=== PATIENT | male | born 1945 | race Caucasian/White ===

== ENCOUNTER 2016-08-07 03:36 | Inpatient (IN) ==
[2016-08-01 11:15] LABS: HEMATOCRIT 35.9 % (42.0-52.0); HEMOGLOBIN 11.7 g/dL (14.0-18.0); MCH 28.7 PG (27-31); MCHC 32.6 g/dL (33-37); MPV 9.8 FL (7.4-10.4); RBC 4.08 XMIL (4.7-6.1)
[2016-08-01 11:24] LABS: INR 1.09; PROTIME 11.5 Seconds (9.2-11.7); PTT 30.6 Seconds (22.0-36.0)
[2016-08-01 11:31] LABS: AGAP 9; BUN 12 mg/dL (8-22); CALCIUM 8.8 mg/dL (8.8-10.2); CHLORIDE 105 mmol/L (98-107); COSMO 279; POTASSIUM 4.8 mmol/L (3.5-5.1); SODIUM 140 mmol/L (136-145); TCO2 26 mmol/L (25-35)
[2016-08-07] MEDS ORDERED: LR 1,000 ML ONE ×2 (05:32→06:11)
[2016-08-07] MEDS ORDERED: PEPCID ONE (05:32)
[2016-08-07] MEDS ORDERED: LEVAQUIN 500 MG/D5W 100 ML ONE (05:32)
[2016-08-07 08:00] LABS: URINE MICRO REVIEW NEEDED? NO; URINE SOURCE CATH
[2016-08-07 08:03] LABS: BILIRUBIN URINE NEGATIVE (NEGATIVE); BLOOD URINE NEGATIVE (NEGATIVE); COLOR STRAW; GLUCOSE URINE NEGATIVE (NEGATIVE); LEUKOCYTES URINE NEGATIVE (NEGATIVE); NITRITE URINE NEGATIVE (NEGATIVE); PH URINE 7.5; PROTEIN URINE NEGATIVE (NEGATIVE); SP GRAVITY URINE 1.005; TURBIDITY URINE CLEAR (CLEAR); UROBILINOGEN URINE NORMAL (NORMAL)
[2016-08-07 08:04] LABS: UR EPITHELIAL CELLS <10 /HPF (<10); URINE BACTERIA NEGATIVE /HPF; URINE RBC <10 /HPF (<10); URINE WBC <10 /HPF (<10)
[2016-08-07] MEDS ORDERED: DILAUDID ONE (10:18)
[2016-08-07] MEDS ORDERED: FENTANYL ONE (10:18)
[2016-08-07] MEDS ORDERED: DIPRIVAN 1% ONE (10:19)
[2016-08-07] MEDS ORDERED: NEOSTIGMINE ONE (10:24)
[2016-08-07] MEDS ORDERED: LR 2,000 ML ONE (10:25)
[2016-08-07] MEDS ORDERED: APRESOLINE ONE (10:25)
[2016-08-07] MEDS ORDERED: ZEMURON ONE (10:25)
[2016-08-07] MEDS ORDERED: ZOFRAN ONE (10:25)
[2016-08-07] MEDS ORDERED: VENTOLIN HFA ONE (10:25)
[2016-08-07] MEDS ORDERED: XYLOCAINE-MPF 2% ONE (10:25)
[2016-08-07] MEDS ORDERED: OFIRMEV 1000 MG/ISOTONIC SOLN 100 ML ONE (10:25)
[2016-08-07] MEDS ORDERED: ROBINUL ONE (10:25)
[2016-08-07] MEDS ORDERED: DECADRON ONE (10:25)
[2016-08-07] MEDS ORDERED: QUELICIN (DOSE) ONE (10:25)
[2016-08-07] MEDS ORDERED: D5 1/2 NS 1,000 ML ONE (10:31)
[2016-08-07] MEDS ORDERED: ZOFRAN IV PRN (11:41)
[2016-08-07] MEDS ORDERED: BENADRYL IV PRN (11:41)
[2016-08-07] MEDS ORDERED: SODIUM CHLORIDE 0.9% INJ PRN (11:41)
[2016-08-07] MEDS ORDERED: TYLENOL PO PRN (11:41)
[2016-08-07] MEDS ORDERED: BENADRYL LIQUID PO PRN (11:41)
[2016-08-07] MEDS ORDERED: B & O 15A SUPP PR PRN (11:41)
[2016-08-07] MEDS ORDERED: LABETALOL IV PRN (11:41)
[2016-08-07] MEDS ORDERED: PHENERGAN IV PRN (11:41)
[2016-08-07] MEDS ORDERED: DITROPAN PO PRN (11:41)
[2016-08-07] MEDS ORDERED: PHENERGAN PO PRN (11:41)
[2016-08-07] MEDS ORDERED: MORPHINE IV PRN (11:41)
[2016-08-07] MEDS ORDERED: NORCO-7.5 PO PRN (11:41)
[2016-08-07] MEDS ORDERED: PHENERGAN PR PRN (11:41)
[2016-08-07] MEDS: D5 1/2 NS 1,000 ML IV SCH ×3 (12:19→22:50)
[2016-08-07] MEDS ORDERED: PNEUMOVAX 23 IM ONE (12:30)
[2016-08-07] MEDS: MULTAQ PO SCH ×2 (19:55→22:53)
[2016-08-07] MEDS: PERIDEX MT SCH ×2 (19:55→22:50)
[2016-08-07] MEDS: COLACE PO SCH ×2 (19:55→22:49)
[2016-08-08 06:19] LABS: HEMATOCRIT 31.4 % (42.0-52.0); HEMOGLOBIN 10.1 g/dL (14.0-18.0); MCH 28.9 PG (27-31); MCHC 32.2 g/dL (33-37); MCV 89.7 FL (81-99); RBC 3.5 XMIL (4.7-6.1)
[2016-08-08 06:26] LABS: CALCIUM 8.7 mg/dL (8.8-10.2); POTASSIUM 4.7 mmol/L (3.5-5.1)
[2016-08-08] MEDS ORDERED: LEVAQUIN 500 MG/D5W 100 ML IV SCH (07:00)
[2016-08-08] MEDS ORDERED: PRILOSEC PO SCH (07:00)
[2016-08-08 08:27] VITALS: BP 133/80
[2016-08-08] MEDS ORDERED: COZAAR PO SCH (09:00)
[2016-08-08] MEDS ORDERED: LIPITOR PO SCH (09:00)
[2016-08-08] MEDS: MULTAQ PO SCH (09:03)
[2016-08-08] MEDS: COLACE PO SCH (09:04)
--- NOTE | 2016-08-08 11:23 | PROGRESS NOTE ---
DATE: 08/08/2016 SUBJECTIVE: Mr. Bowen had a good night. He denies significant pain. He used only 1 pain medication since last night. He denies fevers or chills. His catheter is draining freely. OBJECTIVE: Vital Signs: T 98.4 degrees, P 68, BP 133/80. General: In no acute distress. Abdomen: Appropriately tender, nondistended. Incisions are clean, dry, and intact in all port sites. Genitourinary: Gunter catheter is in place, draining straw-colored urine. PERTINENT LABORATORIES: His white cell count is 11,000, hematocrit 31. Creatinine is 1.5. ASSESSMENT: A 70-year-old male status post robotic assisted laparoscopic prostatectomy with bilateral pelvic lymph node dissection and laparoscopic ureteral suspension, who is doing well. He was educated in postoperative care, including Gunter catheter care, and is ready to be discharged. PLAN: 1. Discharge home with Gunter catheter. 2. Home with prescriptions for [place], Bactrim, Ditropan. 3. I will plan on seeing him on 08/12/2016 for Gunter catheter removal and pathology review.
--- NOTE | 2016-08-26 22:49 | OPERATIVE NOTE ---
PROCEDURE DATE: 08/07/2016 SURGEON: Brendon Cuevas MD PREOPERATIVE DIAGNOSIS: 1. Intermediate risk prostate cancer. 2. Elevated PSA. PRIMARY PROCEDURES: 1. Robotic-assisted laparoscopic prostatectomy. 2. Bilateral pelvic lymph node dissection. 3. Laparoscopic urethral suspension. INDICATIONS: 70-year-old male who presented with originally PSA of 21 which was subsequent decreased to 17. He underwent prostate biopsy which unfortunately revealed multifocal extensive Kyle 6 prostate adenocarcinoma. He presents for definitive surgical treatment. FINDINGS: Bilateral partial nerve sparing, watertight vesicourethral anastomosis, adequate urethral suspension. DESCRIPTION OF PROCEDURE: After obtaining informed consent, patient brought to the operative room. Perioperative antibiotics and general endotracheal anesthesia were administered. He was placed in lithotomy position, prepped and draped sterile fashion. A small stab incision was made in the umbilicus and Veress needle was introduced connected to saline filled syringe. We confirmed positive drop test followed by aspiration of syringe fluid without evidence of GI contents or blood. We then insufflated pneumoperitoneum to 15 mmHg. We marked our trocar sites in a standard prostatectomy fashion. Bovie electrocautery was used to make incision. The 12 mm robotic camera trocar was introduced followed by insertion of the camera. His abdominal wall was examined. There was no evidence of significant adhesions. We then placed the rest of the trocars under direct vision. He was placed in steep Trendelenburg position. The robot was docked. We began by mobilizing his descending colon as it was somewhat adherent to the pelvic sidewall. This was done to the level of the external iliac vein. We then incised the peritoneum approximately 3 cm above the rectum and identified, isolated and transected right vas deferens. This led us to identification and isolation of right seminal vesicle with judicious use of cautery laterally to decrease injury to neurovascular bundles. We then performed the same thing with the left vas deferens and left seminal vesicle. Dissection extended anterior to vas deferens to the level of prostate and posterior seminal vesicles through Denonvilliers fascia into perirectal plane. We then turned attention to dropping the bladder. We incised medial umbilical ligaments laterally and that allowed us to gain access to the space of Retzius. The bladder was dropped and endopelvic fascia was seen. Fatty tissues was reflected off the fascia. It was incised laterally allowing us to visualize the contour of the prostate. We dissected toward the apex of the prostate in the process transecting sharply puboprostatic ligaments and controlled superficial dorsal venous complex with bipolar electrocautery and deep dorsal venous complex was 0 V-Loc suture with a [id number] fashion and anterior periosteal elevation. After that we identified the bladder neck by gently tugging on the Gunter. Monopolar cautery was used to transect at the level of bladder neck which allowed us to eventually see Gunter catheter. We then transected the bladder neck circumferentially and were able to elevate the prostate anteriorly with the help of Gunter catheter. We developed a plane between the prostate and the bladder and dissected until seminal vesicles and vas deferens came into the view. Those were brought onto the operative field allowing us to place the prostate in further anterior traction. We then turned attention to the neurovascular bundles which were reflected with use of hemoclips and no cautery. Given his extensive disease I performed partial nerve sparing. We then reflected the prostate posteriorly and dissected toward the apex. Deep dorsal venous complex at that point was transected. We did use maximal urethral length preservation technique to a degree, the urethra was transected sharply. We delivered the prostate and eventually placed it into the EndoCatch bag. Once that was done, we examined the operative field for bleeding and there was none significant. We then turned attention to bilateral pelvic lymph node dissection. We began on the left side where the external iliac vein was already exposed. I grasped the lymph node packet with the following borders external iliac vein up to the confluence into the common iliac vein superiorly, pelvic side wall laterally, perivesical fat medially, and obturator nerve and vessels posteriorly. The lymph node tissue was meticulously dissected with the use of monopolar cautery as well as sharp dissection. We were able to visualize the obturator nerve and stayed away from it. The lymph node tissue was placed into the EndoCatch bag as well. We then decreased pneumoperitoneum pressure and there was no evidence of bleeding or lymphatic leak. We placed Surgicel hemostatic agent into the lymphadenectomy bed. We then performed the exact same thing on the right side by once again exposing the external iliac vein and dissecting the lymph node packets in 1 piece with the borders of pelvic side wall external iliac vein to its confluence with the common iliac vein, perivesical fat, and obturator nerve and vessels posteriorly. We also decreased pneumoperitoneum pressure without evidence of leak and placed Surgicel hemostatic agent into the lymphadenectomy bed. Following that we turned attention to vesicourethral anastomosis. 3-0 V-Loc suture was used to perform Clive stitch to reapproximate perivesical and periurethral fascia. Once that was done in a running fashion we performed formal vesicourethral anastomosis with another 3-0 V-Loc suture in a clockwise and counterclockwise fashion and subsequently cross tying the sutures. A fresh 18- [place] Gunter catheter was introduced which was latex-free per patient's allergies and it was irrigated with the bladder distended to 180 mL. There was no evidence of leakage. We then used previously placed 3-0 V-Loc sutures for Clive stitch and perform laparoscopic urethral suspension. This was done by threading the sutures through the periosteum of the pubic arch on both sides. The urethra was then suspended by tugging the sutures. There was no evidence of active bleeding. We decreased pneumoperitoneum pressure to 3 mmHg and once again adequate hemostasis was confirmed. We then removed the trocars, his supraumbilical incision was extended, prostate and lymph nodes were delivered within the bag, wounds were irrigated, fascia was closed with interrupted 0 Vicryl sutures in a [id number] fashion at the supraumbilical site which was extended as well as the 12 mm maintenance assistant trocar site in left upper quadrant. Wounds were irrigated again. A 4-0 Monocryl suture was used for subcuticular closure followed by application of Dermabond skin adhesive. He tolerated the procedure well, was extubated, taken to PACU for further recovery. ESTIMATED BLOOD LOSS: 75 mL. COMPLICATIONS: None. DISPOSITION: To PACU, subsequently room on the hospital for observation with Gunter catheter to gravity drainage. cc: Brendon Cuevas MD
== END 2016-08-08 10:18 | disposition home or self-care (01) ==
LOC: SURHOLD 03:36 → 4N 11:21
PROVIDERS: ADMIT Urology; ATTEND Urology

== ENCOUNTER 2016-08-15 04:02 | Inpatient (IN) ==
[2016-08-15 04:34] LABS: MANUAL DIFF NEEDED? NO
[2016-08-15 04:40] LABS: BASO% 0.3 % (0.0-0.8); EOS# 0.19 X1000 (0.0-0.7); EOS% 1.8 % (0.0-10.0); HEMATOCRIT 38.6 % (42.0-52.0); HEMOGLOBIN 12.9 g/dL (14.0-18.0); IMM GRAN# 0.03 X1000 (0.0-0.04); IMM GRAN% 0.3 % (0.0-0.5); LYMPH% 10.2 % (20.5-51.1); MCH 28.4 PG (27-31); MCHC 33.4 g/dL (33-37); MCV 84.8 FL (81-99); MONO# 0.82 X1000 (0.11-0.59); MONO% 7.6 % (1.7-9.3); MPV 9.6 FL (7.4-10.4); NEUT% 79.8 % (42.2-75.2); PLT 334 X1000 (130-400); RBC 4.55 XMIL (4.7-6.1)
[2016-08-15 04:46] LABS: INR 1.04; PTT 28.7 Seconds (22.0-36.0)
[2016-08-15 04:58] LABS: ALBUMIN 4.1 g/dL (3.5-5.0); CALCIUM 9.7 mg/dL (8.8-10.2); POTASSIUM 4.2 mmol/L (3.5-5.1); TOTAL BILIRUBIN 0.9 mg/dL (0.20-1.00); TOTAL PROTEIN 7.5 g/dL (6.3-8.3)
[2016-08-15 05:25] LABS: URINE SOURCE VOIDED
[2016-08-15 05:27] LABS: BILIRUBIN URINE MODERATE (NEGATIVE); CLARITY CLOUDY (CLEAR); COLOR YELLOW; GLUCOSE URINE 100 mg/dL (NEGATIVE)
[2016-08-15 05:28] LABS: BLOOD URINE LARGE (NEGATIVE); LEUKOCYTES URINE TRACE (NEGATIVE); NITRITE URINE POSITIVE (NEGATIVE); PROTEIN URINE 30 mg/dL (NEGATIVE); SP GRAVITY URINE > 1.030
[2016-08-15 05:29] LABS: URINE EPITHELIAL CELLS <10 /HPF (<10); URINE WBC <10 /HPF (<10)
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
[2016-08-15] MEDS ORDERED: NON-FORMULARY BULK MED PR ONE (06:15)
--- NOTE | 2016-08-15 07:28 | Diag Imaging Result Document ---
PROCEDURE NAME: ABDOMEN FLAT/UPRIGHT - 08/15/2016 ABDOMEN, 2 VIEWS: COMPARISON: None. FINDINGS: On one view, there appears to be a calcified stone in the right upper quadrant. This does not appear to be a renal stone. No bowel obstruction or free air. There is very little gas overall in the bowels. IMPRESSION: 1. Possible stone in the right upper quadrant suggesting gallstones. 2. No definite bowel obstruction.
[2016-08-15] MEDS ORDERED: ZOFRAN IV ONE (08:07)
[2016-08-15] MEDS ORDERED: NS 1,000 ML IV ONE (08:07)
[2016-08-15] MEDS ORDERED: ZOFRAN ONE (08:07)
--- NOTE | 2016-08-15 10:12 | Diag Imaging Result Document ---
PROCEDURE NAME: ABDOMEN/PELVIS W/CONTRAST - 08/15/2016 CT OF THE ABDOMEN WITH INTRAVENOUS CONTRAST: FINDINGS: There is a calcified granuloma in the left lower lobe laterally. The stomach is distended. There is atherosclerotic calcification in the aorta and iliac arteries. The mesenteric vessels and renal arteries are patent. There is some mesenteric panniculitis. The spleen is not enlarged. The pancreas is normal in appearance. The adrenal glands are unremarkable. The liver is within normal limits. There is marked dilatation of proximal small bowel loops. The distal small bowel is decompressed. There is no evidence of appendicitis. The transition zone is in the anterior pelvis to the left of the midline on or around image 107. There is diverticulosis in the descending colon. There is no evidence of significant adenopathy. CT OF THE PELVIS WITH INTRAVENOUS CONTRAST: FINDINGS: There is sigmoid diverticulosis without evidence of active diverticulitis. There is no evidence of abscess or free fluid. The urinary bladder is not distended. There is an apparent soft tissue mass measuring 5.9 x 4.7 cm anterior and slightly to the right of the urinary bladder. This has a CT density of slightly more than 20 Hounsfield units. There are some small nodules near the internal inguinal ring on the right, and there is stranding of the fat around the inguinal canal into the scrotum on the right. There appears to be bilateral hydroceles. There is ankylosis of the sacroiliac joints and spondylotic change in the lumbar spine. IMPRESSION: 1. Bowel obstruction. 2. Anterior pelvic mass as described.
[2016-08-15] MEDS ORDERED: ZOFRAN IV PRN (12:24)
[2016-08-15] MEDS ORDERED: APRESOLINE IV PRN (12:24)
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
[2016-08-15] MEDS: NS 1,000 ML IV SCH (14:35)
[2016-08-15] MEDS: PRILOSEC PO SCH (17:15)
[2016-08-15 18:15] LABS: UR CREAT RANDOM 196.4 mg/dL (14-26)
[2016-08-15] MEDS: MULTAQ PO SCH (20:35)
--- NOTE | 2016-08-15 22:19 | CONSULTATION ---
DATE OF CONSULTATION: 08/15/2016 REASON FOR CONSULTATION: Small bowel obstruction. HISTORY OF PRESENT ILLNESS: A 70-year-old male, who is 8 days status post robotic prostatectomy who was at home recovering fairly uneventfully until 2 days ago. He started having increasing nausea, vomiting and abdominal pain. The pain was somewhat crampy in nature. He threw up several times over the last 2 days and then a larger amount earlier today. Since that time, he has had a CT scan with oral contrast. He did not throw up the oral contrast and he has also had an enema with a bowel movement and has passed flatus today. Currently he denies any abdominal pain, and says his nausea is better. His only complaint now is hiccups which started earlier today. PAST MEDICAL HISTORY: Prostate cancer. Irregular heart rate. Hypertension. PAST SURGICAL HISTORY: Neck surgery. Joint replacement. Robotic prostatectomy. ALLERGIES: Penicillin. FAMILY HISTORY: Lung cancer. SOCIAL HISTORY: Negative for tobacco, alcohol, or illicit drug use. HOME MEDICATIONS: Prilosec 40 mg p.o. daily, Cozaar 100 mg p.o. daily, Lipitor 40 mg p.o. daily, Multaq 0.5 mg p.o. b.i.d., Eliquis 5 mg p.o. b.i.d., Hytrin 1 capsule p.o. daily. REVIEW OF SYSTEMS: Ten systems reviewed and negative except as noted above. PHYSICAL EXAMINATION: Vital Signs: Temperature 98.2 degrees, pulse 78, respirations 14, blood pressure 175/91, O2 saturation 95%. General: Well-developed elderly male in no acute distress who looks his stated age. HEENT: Normocephalic, atraumatic. Extraocular muscles intact. Pupils equal, round, reactive to light. Sclerae anicteric. Neck: Supple. No thyromegaly. CARDIOVASCULAR: Regular rate and rhythm. Respiratory: Bilateral equal breath sounds. No work of breathing. GI: Soft, mildly distended and tympanic. He does have a few bowel sounds. He is nontender. His incisions are clean, dry, and intact. No redness or infection. No mass appreciated. No hernia appreciated. Extremities: No clubbing, cyanosis, or edema. Skin: Warm and dry. No rash. Musculoskeletal: Moves all extremities equally and well. LABORATORY: White blood cell count 10.8, hemoglobin 12.9, platelet count 334,000. Complete metabolic profile reviewed and notable for creatinine of 1.6. Up from a baseline of 1.1 on 08/01/2016. Urinalysis shows a large amount of blood in and a positive nitrite. IMAGING: CT of the abdomen and pelvis shows proximal small-bowel dilation and gastric dilation with distal decompressed small bowel consistent with a small bowel obstruction. There is a 5 x 6 cm soft tissue mass slightly anterior and right of the bladder with some nodules near the internal inguinal ring on the right and stranding of the fat down to the scrotum on the right with bilateral hydroceles. An abdominal x-ray showed a stone in the right upper quadrant suggesting gallstones. ASSESSMENT AND PLAN: A 70-year-old male with nausea, vomiting and abdominal pain and distention with imaging consistent with small-bowel obstruction. At this time, his symptoms are improving significantly. Perhaps he has had a mild degree of postoperative ileus. We will continue observation at this time. He is sipping on liquids and tolerating it. We will check an x-ray again in the morning and repeat his abdominal exam. If any worsening of symptoms. He may require surgical exploration, although I think he appears to be getting better. In regards to the soft tissue mass in the pelvis near the bladder, this is perhaps post prostatectomy changes Dr. Cuevas will evaluate as he has also been consulted. cc: Benji Anaya MD
--- NOTE | 2016-08-15 23:16 | CONSULTATION ---
DATE OF CONSULTATION: 08/15/2016 DATE OF CONSULTATION: 08/15/2016. CONSULTING PHYSICIAN: Dr. Burgos, with the hospitalist's service. REASON FOR CONSULTATION: CT scan reading of bladder lesion, acute kidney injury. HISTORY OF PRESENT ILLNESS: A 70-year-old male, who is known to me, secondary to prostate adenocarcinoma. He underwent robotic assisted laparoscopic prostatectomy with bilateral pelvic lymph node dissection and laparoscopic urethral suspension, on 08/07/2016. He was discharged home the next morning without difficulties. He was seen in clinic by me, on 2016. At that time we reviewed his pathology results. His catheter was removed, he reported having minimal to no pain, and eating and ambulating fine. He reports that 2 days prior to presentation, or 1 day after being seen at the office, he developed nausea and one small amount of emesis. He reported that the following day, he had several more episodes, and eventually the vomiting became significant enough that he presented to the emergency room. He reports having had bowel movements and passing flatus throughout this entire ordeal. He denies passing blood in his urine or bowels. He is having incontinence, which is appropriate for being so early after catheter removal. He denies fevers or chills. He denies family members with a recent GI illness. He underwent CT abdomen and pelvis, which was read as bowel obstruction and pelvic mass. PAST MEDICAL HISTORY: 1. Prostate cancer. 2. Atrial fibrillation. 3. Hypertension. 4. Hyperlipidemia. 5. GERD. PAST SURGICAL HISTORY: 1. Left total knee arthroplasty. 2. Neck surgery. 3. Robotic prostatectomy with lymph node dissection and urethral suspension. ALLERGIES: Lasix, penicillin, shellfish. HOME MEDICATIONS: Eliquis, Lipitor, Multaq, Cozaar, Prilosec, MiraLAX and Hytrin. SOCIAL HISTORY: Denies tobacco, alcohol or drug use with the exception of a occasional cigar. FAMILY HISTORY: Negative for malignancies. REVIEW OF SYSTEMS: Reviewed in 12 systems negative with exception as per HPI. PHYSICAL EXAMINATION: vital signs: T 98.2, P 78, BP 175/91. General: No acute distress. HEENT: Normocephalic, atraumatic. Cardiovascular: Regular rhythm on my exam. Pulmonary: Bilateral breath sounds. Abdomen: Nontender, somewhat distended, incisions are clean, dry and intact. He had bowel sounds. : Bladder is nontender to palpation. Normal phallus. Normal meatus. No groin lymphadenopathy. Dermatologic: No obvious skin rashes. Psychiatric: Appropriate mood and affect. Neurologic: Alert on x3. PERTINENT LABORATORIES: White cell count of 10,000, hematocrit of 39, creatinine 1.6. Urinalysis positive for blood, nitrites and bacteria. This was a clean/catch specimen. PERTINENT IMAGES: CT abdomen and pelvis as per HPI. ASSESSMENT AND PLAN: A 70-year-old male, status post recent prostatectomy, who has developed nausea and vomiting, but who is having bowel movements and passing flatus. He stable from the standpoint. I have personally reviewed the images, and explained to the patient that the "lesion" described in the anterior pelvis is likely a small lymphocele or possibly small resolving hematoma. We have discussed that his rising creatinine from a baseline of 1.1, was likely due to dehydration from emesis. PLAN: 1. Agree with urine culture, as he may have a urinary tract infection. 2. Agree with not having to replace the catheter unless absolutely necessary. 3. Patient will continue Kegel exercises. 4. Thank you for the consultation. cc: Brendon Cuevas MD MTDD
[2016-08-16] MEDS ORDERED: THORAZINE 25 MG in NS 25 ML IV ONE (00:11)
[2016-08-16] MEDS: NS 1,000 ML IV SCH ×2 (04:05→22:00)
[2016-08-16] MEDS: PRILOSEC PO SCH ×2 (05:56→06:35)
[2016-08-16 06:42] LABS: HEMATOCRIT 37.8 % (42.0-52.0); HEMOGLOBIN 12.3 g/dL (14.0-18.0); MCH 28.3 PG (27-31); MCHC 32.5 g/dL (33-37); MCV 87.1 FL (81-99); MPV 9.7 FL (7.4-10.4); RBC 4.34 XMIL (4.7-6.1)
[2016-08-16 06:53] LABS: POTASSIUM 4.3 mmol/L (3.5-5.1)
[2016-08-16] MEDS: HYTRIN PO SCH (08:36)
[2016-08-16] MEDS: MULTAQ PO SCH ×2 (08:37→21:59)
[2016-08-16] MEDS ORDERED: PRILOSEC PO SCH (09:00)
--- NOTE | 2016-08-16 09:39 | Diag Imaging Result Document ---
PROCEDURE NAME: ABDOMEN FLAT/UPRIGHT - 08/16/2016 FLAT AND UPRIGHT RADIOGRAPH OF THE ABDOMEN AND PELVIS: COMPARISON: 08/15/2016. FINDINGS: Air-fluid levels and small bowel distention consistent with a known bowel obstruction have increased since the previous radiograph. There is no definite large volume free abdominal gas. IMPRESSION: Slight worsening of small bowel distention and air-fluid levels as described.
--- NOTE | 2016-08-16 10:03 | PROGRESS NOTE ---
DATE: 08/16/2016 SUBJECTIVE: The patient's complains of hiccups but denies abdominal pain, nausea or vomiting. He says he has passed flatus overnight. OBJECTIVE: Vital Signs: He is afebrile. Vital signs are stable. General: Alert and oriented x4. No acute distress. Respiratory: No work of breathing. CV: Regular rate and rhythm. Gastrointestinal: Soft. Mildly distended and tympanic. He does have active bowel sounds. No tenderness appreciated. LABORATORIES: White blood cell count is 16,000, hemoglobin 12.3, BUN 34, creatinine 1.7. IMAGING: His abdominal flat and upright film shows air-fluid levels. There is some contrast in the right colon but overall paucity of colon gas in my opinion. ASSESSMENT AND PLAN: This is a 70-year-old male with partial small-bowel obstruction status post robotic prostatectomy last week. He does not have an acute abdomen. We will continue conservative management with watchful waiting. I am going to get a small bowel series today. If his imaging and abdominal distention improves, we can advance his diet. cc: Benji Anaya MD
--- NOTE | 2016-08-16 10:51 | PROGRESS NOTE ---
DATE: 08/16/2016 SUBJECTIVE: Today Mr. Bowen refers to be doing fine. He continues to have some hiccups, but denies any nausea, vomiting, and no abdominal pain. OBJECTIVE: Vital signs: Blood pressure is 171/92, pulse of 75, respirations 16, temperature is 98.7 degrees. General exam: Mr. Bowen is a 70-year-old male. He was actually sitting up in a chair. Did not seem to be in any distress. HEENT: Mucosa is pink and moist. Anicteric. Acyanotic. Neck: Supple. Chest: Clear. Cardiovascular: Regular rate and rhythm. Abdomen: Soft, nontender. Bowel sounds were present. There is about 3 or 4 surgical scars on the anterior abdominal wall consistent with recent robotic prostatectomy. Extremities: No pedal edema. 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 No focal neurological deficit. LABORATORY DATA: WBC 16.0, hemoglobin is 12.3, platelet count is 314. Chemistry: Sodium is 139, potassium is 4.3, chloride is 95, bicarbonate is 26, creatinine is 1.7. DIAGNOSTIC STUDIES: 1. A CT scan of the abdomen and pelvis which was done yesterday shows bowel obstruction and anterior pelvic mass. 2. An x-ray of the abdomen done today shows slight worsening of small bowel distention and air- fluid level. ASSESSMENT: 1. Nausea and vomiting with x-ray suggestive of mechanical obstruction pattern (small bowel). Patient has been evaluated by surgery. I think there is an order for small bowel series to see if there is a transition point, and then will follow with further recommendations from them. Of note, patient is clinically stable. He is not having any more vomiting, no nausea and no abdominal pain. However, the x-ray seems even worse than yesterday. 2. Anterior abdominal wall mass on the CT scan. This has been evaluated by Dr. Cuevas. He thinks it is probably a resolving hematoma versus a lymphocele. We will keep eye on this and continue observing. 3. Acute kidney injury. Creatinine has worsened slightly. The patient was on normal saline at 75 mL per hour. I have increased this to 100 mL/hour to see if we can perfuse the kidneys. 4. Uncontrolled hypertension. The patient is currently on nothing by mouth. We would therefore use the hydralazine as needed for blood pressure control. 5. Recent robotic prostatectomy noted. 6. Gastroesophageal reflux disease. Will continue with the proton pump inhibitor therapy. 7. History of atrial fibrillation. Currently patient is in sinus. PLAN: So, in general, Mr. Bowen seems to be doing a whole lot better. He is clinically stable with nausea and vomiting resolved; however, x-ray this morning shows worsening of the obstructive pattern. The patient has been scheduled for small bowel series and will follow up with the results. The patient is currently being followed as well by urology and general surgery. cc: Jason Burgos MD
--- NOTE | 2016-08-16 14:42 | Diag Imaging Result Document ---
PROCEDURE NAME: SMALL BOWEL SERIES ONLY - 08/16/2016 SMALL BOWEL EXAMINATION: COMPARISON: X-rays from earlier 08/16/2016. FINDINGS: Total fluoroscopy time was 2 minute 6 seconds. Twenty-one images were obtained. There is significant dilation of proximal small bowel with severe collapse of the distal small bowel. There is very little stool or gas in the colon or rectum. No free air. There was some peristalsis throughout the bowels and, after about 3 hours, contrast did reach the collapsed distal small bowel. The transition point is probably in the pelvis. IMPRESSION: Relatively high-grade partial small bowel obstruction. The transition point is most likely in the pelvis.
[2016-08-17 06:47] LABS: HEMATOCRIT 31.9 % (42.0-52.0); HEMOGLOBIN 10.4 g/dL (14.0-18.0); MCH 28.7 PG (27-31); MCHC 32.6 g/dL (33-37); MCV 88.1 FL (81-99); MPV 9.6 FL (7.4-10.4); RBC 3.62 XMIL (4.7-6.1)
[2016-08-17] MEDS: PRILOSEC PO SCH (06:49)
[2016-08-17 07:02] LABS: CALCIUM 8.8 mg/dL (8.8-10.2); POTASSIUM 4.3 mmol/L (3.5-5.1)
[2016-08-17] MEDS: HYTRIN PO SCH (08:31)
[2016-08-17] MEDS: MULTAQ PO SCH ×2 (08:31→20:44)
--- NOTE | 2016-08-17 08:57 | Diag Imaging Result Document ---
PROCEDURE NAME: ABDOMEN FLAT/UPRIGHT - 08/17/2016 X-RAY ABDOMEN, TWO VIEWS: COMPARISON: 08/16/2016. FINDINGS: There has been passage of the majority of the barium, which now fills the colon. A small amount is retained in the collapsed distal small bowel. There are numerous diverticula visible of the sigmoid colon. Otherwise, there are stable proximal loops of small bowel that are very dilated with gas and fluid. IMPRESSION: 1. No significant change in the partial small bowel obstruction. 2. Diverticulosis coli.
--- NOTE | 2016-08-17 10:36 | PROGRESS NOTE ---
DATE: 08/17/2016 SUBJECTIVE: Four large bowel movements after his upper GI study yesterday. No pain. Feels well. No nausea. OBJECTIVE: Afebrile. Heart rate is 64, blood pressure 153/65, oxygen saturation 99% on room air. General: He is alert. Abdomen is soft, nontender, nondistended. LABORATORIES: Labs are reviewed. White count is down to 12, hematocrit is 31. Creatinine is 1.3 which is down from 1.7. In review of his small bowel follow though yesterday, shows evidence of high grade obstruction with small bowel dilation and transition point. However , his KUB today shows colon full of contrast. No evidence of significant bowel dilation. ASSESSMENT AND PLAN: A 70-year-old male status post prostatectomy with a bowel obstruction postoperative. He is 7 days postop. He appears to resolve this based on his imaging today. We will gradually begin advancing his diet with clear liquids today, encourage out of bed, repletion of electrolytes. cc: Julia Coleman MD MTDD
--- NOTE | 2016-08-17 15:00 | PROGRESS NOTE ---
DATE: 08/17/2016 SUBJECTIVE: Today, Mr. Bowen referred to be doing fine. According to him, he had multiple bowel movements yesterday. He denies any vomiting or any nausea. He is tolerating a clear liquid diet. Hiccups have improved. OBJECTIVE: Vital signs: Blood pressure is 117/84, pulse 73, respirations 16, temperature 98.5. General: Mr. Bowen is a 70-year-old male. He was in bed, no significant distress. Mucosa is pink and moist. Anicteric and acyanotic. Neck: Supple. Chest was clear. Cardiovascular: Regular rate and rhythm. Abdomen: Soft, nontender. There are a few surgical scars, surgical wounds on the anterior abdominal wall consistent with recent robotic prostatectomy. Extremities: No pedal edema. 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 DIAGNOSTIC DATA: WBC is 12.02, hemoglobin 10.4, platelet count of 273. Chemistry shows sodium 139, potassium 4.3, chloride 105, bicarb 25, creatinine is down to 1.3 which is improving. ASSESSMENT: 1. Nausea and vomiting secondary to partial small bowel obstruction. The patient seems to be improving. Subsequent x-ray this morning continues to show partial small bowel obstruction. Surgery has evaluated the patient. They are okay with the patient starting a clear liquid diet. We will follow up further recommendations from them. 2. Anterior abdominal wall on CT scan. This has been evaluated by Urology (Dr. Cuevas), and they think it is a hematoma versus lymphocele from surgery. 3. Acute kidney injury. This is improving with IV hydration. 4. Hypertension. Controlled. 5. Gastroesophageal reflux disease, improved. 6. History of paroxysmal atrial fibrillation, currently sinus controlled. PLAN: In general, Mr. Bowen is doing a lot better. However, subsequent x-ray this morning continues to show partial small bowel obstruction. Clinically, he has had no more vomiting and he has had bowel movement. He has been started on clear liquid diet, and this will be advanced as tolerated. We will follow up further recommendations from Surgery. For now, we will encourage the patient to move around to help mobilization of the gut and will continue with adequate hydration to also improve the renal function. cc: Jsaon Burgos MD
[2016-08-17] MEDS: NS 1,000 ML IV SCH (16:58)
[2016-08-18] MEDS: NS 1,000 ML IV SCH ×2 (02:10→11:46)
[2016-08-18 06:21] LABS: HEMATOCRIT 30.3 % (42.0-52.0); HEMOGLOBIN 9.9 g/dL (14.0-18.0); MCH 28.4 PG (27-31); MCHC 32.7 g/dL (33-37); MCV 87.1 FL (81-99); MPV 9.1 FL (7.4-10.4); RBC 3.48 XMIL (4.7-6.1)
[2016-08-18] MEDS: PRILOSEC PO SCH (06:28)
[2016-08-18 06:57] LABS: AGAP 9; BUN 23 mg/dL (8-22); CHLORIDE 106 mmol/L (98-107); COSMO 279; POTASSIUM 3.9 mmol/L (3.5-5.1); SODIUM 138 mmol/L (136-145); TCO2 23 mmol/L (25-35)
[2016-08-18] MEDS ORDERED: MIRALAX PO SCH (09:00)
[2016-08-18] MEDS ORDERED: PERICOLACE PO SCH (09:00)
[2016-08-18] MEDS: MULTAQ PO SCH (09:12)
[2016-08-18] MEDS: HYTRIN PO SCH (09:12)
--- NOTE | 2016-08-18 10:29 | Diag Imaging Result Document ---
PROCEDURE NAME: TONIO ABDOMEN - 08/18/2016 ABDOMEN, 2 VIEWS: COMPARISON: 08/17/2016. FINDINGS: There has been apparent resolution of the dilated proximal small bowel. Contrast fills the colon and rectum. There is diverticulosis of the distal colon. IMPRESSION: Resolution of the small bowel obstruction.
[2016-08-18 11:20] VITALS: BP 117/59
--- NOTE | 2016-08-18 15:25 | PROGRESS NOTE ---
DATE: 08/18/2016 SUBJECTIVE: Feels well. He is having bowel movements. No pain, no nausea. OBJECTIVE: Vital signs: No fevers. No tachycardia. Blood pressure 117/59. Abdomen: Soft, nontender, nondistended. Integument: Warm, dry. Neuro: He is alert and oriented. LABS: I reviewed his labs. White count is normal, hematocrit 30, creatinine is 1.1. Electrolytes are okay. Magnesium and potassium are a touch low but within normal limits. KUB shows complete resolution of bowel obstruction. ASSESSMENT AND PLAN: A 70-year-old male status post prostatectomy with bowel obstruction is resolved clinically and radiographically. Will advance his diet as tolerated. Please call with questions or concerns. cc: Julia Coleman MD
--- NOTE | 2016-08-19 04:30 | DISCHARGE SUMMARY ---
ADMISSION DATE: 08/15/2016 DISCHARGE DATE: 08/18/2016 INVASIVE PROCEDURES DONE DURING THIS ADMISSION: None. IMAGING STUDIES OF SIGNIFICANCE: A CT scan of the abdomen and pelvis was done on presentation which showed bowel obstruction and anterior pelvic mass. A subsequent small bowel x-ray series was done which showed relatively high-grade partial small bowel obstruction. A subsequent x-ray done today shows resolution of the small bowel obstruction. CONSULTATION DURING THIS ADMISSION: 1. Surgery was consulted. Patient was seen by Benji Anaya MD and followed up by Julia Coleman MD 2. Urology was also consulted. Patient was seen by Brendon Cuevas MD. ADMISSION DIAGNOSES: 1. Small bowel obstruction. 2. Anterior pelvic mass with the renal failure. 3. Hypertension. 4. Prostate cancer. 5. History of chronic atrial fibrillation. DISCHARGE DIAGNOSES: 1. Nausea and vomiting on presentation, secondary to partial small bowel obstruction. This has completely resolved. 2. Anterior abdominal wall mass on CT scan, consistent with postsurgical hematoma. 3. Acute kidney injury, resolved. 4. Hypertension. 5. Gastroesophageal reflux disease. 6. History of paroxysmal atrial fibrillation. DISCHARGE MEDICATIONS: 1. Omeprazole 40 mg daily. 2. Losartan 100 mg daily. 3. Atorvastatin 40 mg daily. 4. Multaq 0.5 mg daily b.i.d. 5. Eliquis 5 mg b.i.d. 6. Terazosin one tablet daily. 7. Donna-Colace two tablets b.i.d. PRESENTING COMPLAINT: Nausea and vomiting. HISTORY OF PRESENTING COMPLAINT: Mr. Bowen is a 70-year-old male, who recently had prostatectomy secondary to prostate cancer by Dr. Brendon Cuevas. This was done on 08/07/2016. The patient refers to have been in his usual state of health until 2-3 days prior to his current admission. He started having nausea and vomiting which was not controlled with anything. He presented to the emergency department and a CT scan was done of the abdomen and pelvis which was consistent for small bowel obstruction. The patient was subsequently admitted for further medical care. HOSPITAL COURSE: The patient was admitted to medical floor under telemetry. Kept NPO and IV fluids for adequate hydration. Electrolytes were corrected. Surgery was consulted. Right from the emergency room, the patient was seen by Dr. Anaya and was followed up by Dr. Coleman. During the hospital stay, progressively the patient was able to eat, nausea and vomiting stopped, and he had a regular bowel movement. Today a followup chest x-ray did show that the obstruction is completely resolved. During the hospital course, the patient was also seen by Dr. Brendon Cuevas because of the anterior abdominal wall mass that was seen on the CT scan. However, Dr. Brendon Cuevas thinks that this is probably a postsurgical hematoma, which resolve on its own or lymphocele. Today, Mr. Bowen is doing a whole lot better. He has been able to tolerate his feedings. He is having regular bowel movements. He has been moving around. He is going to be discharged home in a stable condition. Vitals at the time of discharge blood pressure is 117/59, pulse 72, respirations 20, temperature 98.8 degrees. The patient will followup with his primary care physician, Dr. Ericka Lim, Dr. Benji Anaya, and Dr. Brendon Cuevas. TIME SPENT FOR DISCHARGE: Is 35 minutes. cc: Jason Burgos MD
== END 2016-08-18 14:47 | disposition home or self-care (01) ==
LOC: ED 04:02 → 4N 12:08
PROVIDERS: ATTEND Internal Medicine